=== PATIENT | male | born 1975 | race Hispanic/Latino ===

== ENCOUNTER 2019-02-26 07:48 | Day surgery (SDC) | payer BC ==
--- NOTE | 2019-02-25 16:31 | RAD REPORT ---
EXAM DESCRIPTION: RAD - Chest Pa And Lat (2 Views) - 02/25/2019 4:19 pm CLINICAL HISTORY: preop Chest pain. COMPARISON: No comparisons FINDINGS: The lungs are clear. The heart is normal in size. No displaced fractures. IMPRESSION: No acute or concerning finding suspected.
[2019-02-25 16:54] LABS: Absolute Lymphocytes (CBC) 2.4 K/uL (0.7-4.9); Basophils % 0.5 % (0-1.3); Hematocrit 43.8 % (39.6-49.0); Lymphocytes % 33.1 % (15.3-44.8); MPV 9.6 fL (7.6-11.3)
[2019-02-25 17:19] LABS: Potassium 3.9 mmol/L (3.5-5.1)
--- NOTE | 2019-02-25 17:41 | EKG ---
Test Date: 2019-02-25 Test Time: 16:05:58 Lighting Engineer: ILEANA MEASUREMENT RESULTS: Intervals: Rate: 62 NC: 162 QRSD: 94 QT: 410 QTc: 416 [place]: P: 15 NC: 162 QRS: -6 T: 18 INTERPRETIVE STATEMENTS: Normal sinus rhythm Normal ECG No previous ECG available for comparison Electronically Signed On 02-25-19 17:41:13 CDT by Sharan Abarca
[2019-02-26] MEDS ORDERED: MIDAZOLAM HCL 2 MG/2 ML INJ ONE (07:52)
[2019-02-26] MEDS ORDERED: PROPOFOL 200 MG/20 ML VIAL IV ONE (07:52)
[2019-02-26] MEDS ORDERED: FENTANYL CITR 100 MCG/2 ML ONE (07:52)
[2019-02-26] MEDS ORDERED: LIDOCAINE 2% MPF 5 ML VIAL ONE (07:52)
[2019-02-26] MEDS ORDERED: Ringers Lactate 1,000 ML IV ONE (07:53)
[2019-02-26] MEDS ORDERED: CEFAZOLIN/SWI 1gm 1 GM/10 ML SYR ONE (07:53)
[2019-02-26] MEDS ORDERED: KETOROLAC 30 MG/ML INJ ONE (09:05)
--- NOTE | 2019-02-26 09:13 | P.BOP ---
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
[2019-02-26] MEDS ORDERED: ONDANSETRON 4 MG/2 ML VIAL ONE (09:31)
[2019-02-26 10:25] VITALS: BP 125/65; TEMP 97.1; O2SAT 98
[2019-02-26] MEDS ORDERED: CODEINE 30MG/APAP 300MG TAB ONE (10:36)
--- NOTE | 2019-02-26 11:30 | OP ---
Date of Procedure: 02/26/2019 Surgeon: Juan Francisco Chawla MD Literary Agent: DOLORES Nunez. Preoperative Diagnosis: Right supraclavicular mass. Postoperative Diagnosis: Right supraclavicular mass. Procedure: Excisional biopsy of right intramuscular supraclavicular mass about 4 x 4 cm. Specimen: Mass. Findings: Patient has mass, which is partially intramuscular, at least half of that goes into the tr apezius muscle. The other one is lying in the subcutaneous tissue. Anesthesia: General plus local. Indictions: This is the case of a 43-year-old patient, comes with a supraclavicular mass just anteri or to the trapezius muscle. It is increasing in size. He has pain and discomfort. So, he wants yonis t excised. The benefits, alternatives, and risks of excision were fully explained to the patient, wh ich include, but are not limited to infection, bleeding, damage to adjacent structures, and complicat ion, nonhealing wound, NC, and even . He also understands this might not relieve any symptoms, he might need more than one surgical intervention. He understood, signed a consent. Description Of Procedure: Patient was brought to the operating room, placed in supine position. Ane sthesia was done without complication. The area of concern was marked by me and the patient in the h olding room. So the area was prepped and draped in a sterile fashion. Incision was made over the ar ea after the time-out was called. Incision was carried down to subcutaneous tissue. We noticed that this mass not only is in the subcutaneous, goes to the anterior part of the trapezius muscle just melendez praclavicular. Carefully, the muscle fibers were split apart. We did not cut them and we were able to with the help of blunt dissection, remove the mass from that area intramuscular. The mass was com pletely excised. The area was irrigated. The muscle fibers were approximated with chromic. The irr igation was done over the area. No other masses palpated and then, the subcutaneous tissue, closed w ith 3-0 chromic and the skin with 4-0 PDS, and a Steri-Strip on top after hemostasis was obtained. T he patient tolerated the procedure well. The patient was sent to recovery in stable condition. ANSELMO/FREDERIC Voice ID: [id number] Report ID: [id number]
--- NOTE | 2019-02-26 11:35 | DS ---
Date of Discharge: 02/26/2019 Diagnosis: Intramuscular supraclavicular mass. Procedure: Excisional biopsy, intramuscular supraclavicular mass. Disposition: Home. Discharge Instructions: Activity as tolerated. No lifting. Follow up in my office in 1 week. Call for appointment at [phone]. Keep the area dry for 48 hour, then may shower. Keep Steri-Strips int act. Medications: Tylenol No. 3 q.4 hours p.r.n. pain. ANSELMO/FREDERIC Voice ID: [id number] Report ID: [id number]
== END 2019-02-26 11:01 | disposition home or self-care (01) ==
LOC: OR 07:48
PROVIDERS: ATTEND Surgery
PROC: 0KB20ZZ Excision of Right Neck Muscle, Open Approach (ICD-10-PCS; principal; 2019-02-26 09:00)
DX: M62.89 Other specified disorders of muscle (principal)
CPT/HCPCS: 93005; 85025; 80048; 36415; 88304; 71046; 21556; J2704; J2250; J3010; J0690; J7120; J2405; 88305